=== PATIENT | male | born 1970 | race Caucasian/White ===

== ENCOUNTER 2021-05-27 15:06 | Inpatient (IN) | payer MEDICAID ==
[~2021-05-27] VITALS: Ht 182.9 cm; Wt 126.7 kg
[2021-05-27] MEDS ORDERED: ONDANSETRON HCL 4MG/2ML INJ IV STA (15:18)
[2021-05-27] MEDS ORDERED: SODIUM CHLORIDE 0.9% 1,000 ML IV ONE (15:30)
[2021-05-27] MEDS ORDERED: MORPHINE SULFATE 4 MG/ML CPJ (NOT FOR IM USE) IV ONE (16:15)
[2021-05-27 16:33] LABS: BASOPHILS % 1.2 % (0.0-2.0); EOSINOPHILS % 0.8 % (0.0-5.0); HEMATOCRIT. 35.5 % (42.0-52.0); HEMOGLOBIN. 11.8 g/dL (14.0-18.0); LYMPHOCYTES % 16.3 % (20.0-50.0); MEAN CORPUSCULAR HEMOGLOBIN 27.5 pg (28.0-32.0); MEAN CORPUSCULAR VOLUME 82.7 fL (80.0-94.0); MEAN PLATELET VOLUME 10.1 fl (7.4-10.4); MONOCYTES % 7.7 % (2.0-8.0); PLATELET 99 x1000/uL (130-400); RED BLOOD CELL COUNT 4.29 mill/uL (4.7-6.1); RED CELL DISTRIBUTION WIDTH 21.4 % (11.6-14.6)
[2021-05-27 16:44] LABS: INR 1.2
[2021-05-27] MEDS ORDERED: PANTOPRAZOLE SODIUM 40 MG/VIAL IV ONE (16:45)
[2021-05-27 16:59] LABS: CHLORIDE 103 mEq/L (98-107)
[2021-05-27 17:06] LABS: BETA HYDROXYBUTYRATE 0.7 mMol/L (0.0-0.3)
[2021-05-27 17:10] LABS: ETHANOL BLOOD 297 mg/dL
[2021-05-27] MEDS ORDERED: POTASSIUM CHLORIDE 20MEQ TABLET SR PO ONE (18:45)
[2021-05-27 19:12] LABS: CLARITY URINE CLEAR (CLEAR); COLOR URINE YELLOW (YELLOW); KETONES URINE NEGATIVE (NEGATIVE); LEUKOCYTE ESTERASE URINE NEGATIVE (NEGATIVE); NITRITE URINE NEGATIVE (NEGATIVE); OCCULT BLOOD URINE NEGATIVE (NEGATIVE); PH URINE 5.5 (4.5-8.0); PROTEIN URINE 1+ (NEGATIVE); SPECIFIC GRAVITY URINE 1.006 (1.005-1.030)
[2021-05-27] MEDS ORDERED: FOLIC ACID 1 MG, THIAMINE HCL 100 MG, MVI, ADULT NO.1 10 ML in DEXTROSE 5% WATER 1,000 ML IV ONE ×4 (19:45)
[2021-05-27] MEDS ORDERED: ACETAMINOPHEN 325MG TABLET PO PRN ×2 (23:15)
[2021-05-27] MEDS ORDERED: MAGNESIUM/ALUMINUM HYDROXIDE/SIMETHICONE 30ML UDC PO PRN (23:15)
[2021-05-27] MEDS ORDERED: CLONIDINE 0.1MG TABLET PO PRN (23:15)
[2021-05-27] MEDS ORDERED: GUAIFENESIN 200MG/10ML SUGAR FREE UDC PO PRN (23:15)
[2021-05-27] MEDS ORDERED: POTASSIUM CHLORIDE INJ 40 MEQ in DEXT 5% WATER 250 ML IV ONE (23:15)
[2021-05-27] MEDS ORDERED: ENOXAPARIN 40MG/0.4ML SYR SUBCUT NR (23:31)
[2021-05-27] MEDS: KCL 20MEQ/100ML X 2 FOR TOTAL KCL 40MEQ/200ML IV SCH (23:45)
[2021-05-27] MEDS: SODIUM CHLORIDE 0.9% 1,000 ML IV SCH (23:45)
[2021-05-27 23:52] LABS: *AMPHETAMINES SCREEN URINE NEGATIVE (NEGATIVE)
[2021-05-27 23:53] LABS: *BARBITURATES SCREEN URINE NEGATIVE (NEGATIVE); *BENZODIAZEPINES SCREEN URINE NEGATIVE (NEGATIVE); *COCAINE SCREEN URINE NEGATIVE (NEGATIVE); CANNABINOID URINE SCREEN NEGATIVE (NEGATIVE); METHADONE URINE SCREEN NEGATIVE (NEGATIVE); OPIATES URINE SCREEN PRESUMTIVE POSITIVE (NEGATIVE); PHENCYCLIDINE URINE SCREEN NEGATIVE (NEGATIVE)
[2021-05-28] VITALS (7 sets, daily range): BP systolic 118–149; BP diastolic 74–89
[2021-05-28] MEDS: HYDROCODONE/ACETAMINOPHEN 5/325MG TABLET PO PRN (01:22)
[2021-05-28] MEDS ORDERED: NALOXONE HCL 0.4MG/ML VIAL IV PRN (01:30)
[2021-05-28] MEDS: LORAZEPAM 2MG/ML CPJ IV PRN ×3 (01:40→18:44)
[2021-05-28] MEDS: ONDANSETRON HCL 4MG/2ML INJ IV PRN ×2 (01:41→18:43)
[2021-05-28] MEDS: KCL 20MEQ/100ML X 2 FOR TOTAL KCL 40MEQ/200ML IV SCH ×3 (01:45→05:45)
[2021-05-28] MEDS ORDERED: METO100T16 PO (01:58)
[2021-05-28] MEDS ORDERED: RIVA20TA PO (01:58)
[2021-05-28] MEDS ORDERED: METF-414 PO (01:58)
[2021-05-28] MEDS ORDERED: ATOR40TA70 PO (01:58)
[2021-05-28] MEDS ORDERED: LOSA100T32 PO (01:58)
[2021-05-28] MEDS ORDERED: FAMO20TA8 PO (01:58)
[2021-05-28 07:24] LABS: BASOPHILS % 1.3 % (0.0-2.0); EOSINOPHILS % 1.1 % (0.0-5.0); HEMATOCRIT. 38.8 % (42.0-52.0); HEMOGLOBIN. 12.9 g/dL (14.0-18.0); LYMPHOCYTES % 13.9 % (20.0-50.0); MEAN CORPUSCULAR HEMOGLOBIN 27.8 pg (28.0-32.0); MEAN CORPUSCULAR VOLUME 83.4 fL (80.0-94.0); MEAN PLATELET VOLUME 11.1 fl (7.4-10.4); MONOCYTES % 9.8 % (2.0-8.0); NEUTROPHILS % 73.9 % (40.0-76.0); PLATELET 60 x1000/uL (130-400); RED BLOOD CELL COUNT 4.65 mill/uL (4.7-6.1); RED CELL DISTRIBUTION WIDTH 21.6 % (11.6-14.6)
[2021-05-28 07:42] LABS: PHOSPHORUS 3.5 mg/dL (2.5-4.9)
[2021-05-28] MEDS ORDERED: ENOXAPARIN 30MG/0.3ML SYR SUBCUT SCH (09:00)
[2021-05-28] MEDS: SODIUM CHLORIDE 0.9% 1,000 ML IV SCH ×3 (13:22→21:35)
[2021-05-29] VITALS (7 sets, daily range): BP systolic 128–153; BP diastolic 82–91
[2021-05-29 07:59] LABS: BASOPHILS % 1.3 % (0.0-2.0); EOSINOPHILS % 1.7 % (0.0-5.0); HEMATOCRIT. 34.8 % (42.0-52.0); HEMOGLOBIN. 11.7 g/dL (14.0-18.0); MEAN CORPUSCULAR VOLUME 83.1 fL (80.0-94.0); MEAN PLATELET VOLUME 11.1 fl (7.4-10.4); MONOCYTES % 10.4 % (2.0-8.0); NEUTROPHILS % 71.6 % (40.0-76.0); PLATELET 53 x1000/uL (130-400); RED BLOOD CELL COUNT 4.19 mill/uL (4.7-6.1); RED CELL DISTRIBUTION WIDTH 21.1 % (11.6-14.6)
[2021-05-29 08:33] LABS: PHOSPHORUS 3.2 mg/dL (2.5-4.9)
[2021-05-29] MEDS ORDERED: LOSARTAN POTASSIUM 100 MG TABLET PO SCH ×2 (09:00→21:00)
[2021-05-29] MEDS ORDERED: ATORVASTATIN CALCIUM 40MG TABLET PO SCH ×2 (09:00→21:00)
[2021-05-29] MEDS: FAMOTIDINE 20MG TABLET PO SCH (09:27)
[2021-05-29] MEDS: METOPROLOL TARTRATE 100MG TABLET PO SCH ×2 (09:28→17:45)
[2021-05-29] MEDS: HYDROCODONE/ACETAMINOPHEN 5/325MG TABLET PO PRN (09:28)
[2021-05-29] MEDS: SODIUM CHLORIDE 0.9% 1,000 ML IV SCH ×2 (12:27→22:02)
[2021-05-29] MEDS: LORAZEPAM 2MG/ML CPJ IV PRN ×2 (12:27→22:01)
[2021-05-29] MEDS ORDERED: RIVAROXABAN 20 MG TABLET PO SCH (17:00)
[2021-05-30] VITALS: BP 147/85
[2021-05-30 04:00] VITALS: BP 131/59
[2021-05-30 06:16] LABS: BASOPHILS % 1.2 % (0.0-2.0); EOSINOPHILS % 3.6 % (0.0-5.0); HEMATOCRIT. 34.2 % (42.0-52.0); HEMOGLOBIN. 11.5 g/dL (14.0-18.0); LYMPHOCYTES % 18.9 % (20.0-50.0); MEAN CORPUSCULAR HEMOGLOBIN 28.1 pg (28.0-32.0); MEAN CORPUSCULAR VOLUME 83.4 fL (80.0-94.0); MEAN PLATELET VOLUME 11.5 fl (7.4-10.4); MONOCYTES % 7.5 % (2.0-8.0); NEUTROPHILS % 68.8 % (40.0-76.0); RED CELL DISTRIBUTION WIDTH 21.1 % (11.6-14.6)
[2021-05-30 06:23] LABS: CHLORIDE 108 mEq/L (98-107)
[2021-05-30 06:28] LABS: PHOSPHORUS 2.9 mg/dL (2.5-4.9)
[2021-05-30 06:55] LABS: PLATELET 48 x1000/uL (130-400)
[2021-05-30 08:00] VITALS: BP 161/84
[2021-05-30 08:11] LABS: PLATELET ESTIMATE MARKEDLY DECREASED
[2021-05-30] MEDS: LORAZEPAM 2MG/ML CPJ IV PRN (08:55)
[2021-05-30] MEDS: METOPROLOL TARTRATE 100MG TABLET PO SCH (08:55)
[2021-05-30] MEDS: FAMOTIDINE 20MG TABLET PO SCH (08:55)
[2021-05-30] MEDS ORDERED: THIAMINE HCL 100MG TABLET PO SCH (09:00)
[2021-05-30] MEDS: MAGNESIUM OXIDE 400MG TABLET PO SCH ×2 (09:05→12:43)
[2021-05-30 12:00] VITALS: BP 149/91
[2021-05-30] MEDS ORDERED: THIA100T72 PO (13:55)
[2021-05-30 14:37] VITALS: BP 140/89
== END 2021-05-30 17:15 | disposition home or self-care (01) | DRG 203 ==
LOC: ER 15:06 → MICUSO 22:42 → SUPCPDRO 23:00 → 6WST 05-28 00:33
PROVIDERS: ADMIT Internal Medicine; ATTEND Internal Medicine
DX: R07.89 Other chest pain (principal); N17.9 Acute kidney failure, unspecified; F10.129 Alcohol abuse with intoxication, unspecified; E11.9 Type 2 diabetes mellitus without complications; I48.91 Unspecified atrial fibrillation; F10.139 Alcohol abuse with withdrawal, unspecified; Z20.822 Contact with and (suspected) exposure to COVID-19; E78.00 Pure hypercholesterolemia, unspecified; I10 Essential (primary) hypertension; F41.9 Anxiety disorder, unspecified; E78.5 Hyperlipidemia, unspecified; Z79.01 Long term (current) use of anticoagulants; Z79.84 Long term (current) use of oral hypoglycemic drugs; Z79.899 Other long term (current) drug therapy; Z88.8 Allergy status to other drugs, medicaments and biological substances; E87.6 Hypokalemia; Z86.79 Personal history of other diseases of the circulatory system; R11.0 Nausea
CPT/HCPCS: 36415; 71045; 80048; 80053; 80305; 80320; 81003; 82010; 82550; 82962; 83605; 83735; 83880; 83930; 84100; 84484; 85025; 87426; 93005; 99285; C9113; J1650; J2060; J2270; J2405; J3411; J3480; J3490; J7030; J7070; G0480

== ENCOUNTER 2021-07-04 15:28 | Inpatient (IN) | payer MEDICAID ==
[~2021-07-04] VITALS: Ht 172.7 cm; Wt 125.6 kg
[~2021-07-04 15:28] MED LIST: ATOR40TA70 PO; FAMO20TA8 PO; LOSA100T32 PO; METF-414 PO; METO100T16 PO; RIVA20TA PO; THIA100T72 PO
[2021-07-04] MEDS ORDERED: ASPIRIN 325MG EC TABLET PO ONE (16:00)
[2021-07-04 16:08] LABS: BASOPHILS % 2.8 % (0.0-2.0); EOSINOPHILS % 1.5 % (0.0-5.0); HEMATOCRIT. 38.9 % (42.0-52.0); HEMOGLOBIN. 13.3 g/dL (14.0-18.0); LYMPHOCYTES % 28.4 % (20.0-50.0); MEAN CORPUSCULAR HEMOGLOBIN 28.4 pg (28.0-32.0); MEAN CORPUSCULAR VOLUME 83.2 fL (80.0-94.0); MEAN PLATELET VOLUME 10.2 fl (7.4-10.4); MONOCYTES % 8.3 % (2.0-8.0); PLATELET 114 x1000/uL (130-400); RED BLOOD CELL COUNT 4.68 mill/uL (4.7-6.1); RED CELL DISTRIBUTION WIDTH 20.3 % (11.6-14.6)
[2021-07-04 16:21] LABS: CHLORIDE 99 mEq/L (98-107)
[2021-07-04 16:34] LABS: ETHANOL BLOOD 312 mg/dL
[2021-07-04] MEDS ORDERED: METOPROLOL TARTRATE 5MG/5ML VIAL IV NR (16:45)
[2021-07-04] MEDS ORDERED: SODIUM CHLORIDE 0.9% 1,000 ML IV NR (16:45)
[2021-07-04] MEDS ORDERED: MORPHINE SULFATE 2 MG/ML CPJ (NOT FOR IM USE) IV NR (17:15)
[2021-07-04] MEDS ORDERED: CLONIDINE 0.1MG TABLET PO PRN (20:45)
[2021-07-04] MEDS ORDERED: IPRATROPIUM/ALBUTEROL 0.5-3(2.5)MG/3ML NEB NEB PRN (20:45)
[2021-07-04] MEDS ORDERED: ONDANSETRON HCL 4MG/2ML INJ IV PRN (20:45)
[2021-07-04] MEDS ORDERED: GUAIFENESIN 200MG/10ML SUGAR FREE UDC PO PRN (20:45)
[2021-07-04] MEDS ORDERED: NITROGLYCERIN 0.4MG TABLET SL SL PRN (20:45)
[2021-07-04] MEDS ORDERED: ACETAMINOPHEN 325MG TABLET PO PRN ×2 (20:45)
[2021-07-04] MEDS ORDERED: MAGNESIUM/ALUMINUM HYDROXIDE/SIMETHICONE 30ML UDC PO PRN (20:45)
[2021-07-04] MEDS ORDERED: DOCUSATE SODIUM 100MG CAPSULE PO PRN (20:45)
[2021-07-04] MEDS ORDERED: MVI, ADULT NO.1 10 ML, FOLIC ACID 1 MG, THIAMINE HCL 100 MG in SODIUM CHLORIDE 0.9% 1,0... IV SCH ×4 (21:00)
[2021-07-04 21:16] LABS: T4 FREE 1.21 ng/dL (0.76-1.46)
[2021-07-04 21:27] LABS: FOLIC ACID (FOLATE) SERUM 6.4 ng/mL (>5.38)
[2021-07-04] MEDS: FAMOTIDINE 20MG TABLET PO SCH (21:38)
[2021-07-04] MEDS: KETOROLAC 15MG/ML VIAL IV PRN (21:39)
[2021-07-04] MEDS ORDERED: METOPROLOL TARTRATE 5MG/5ML VIAL IV ONE (21:45)
[2021-07-04 23:37] LABS: CREATINE KINASE 188 IU/L (39-308)
[2021-07-04 23:38] LABS: CREATINE KINASE MB FRACTION 2.2 ng/mL (0.5-3.6)
[2021-07-05] MEDS: DILTIAZEM HCL 60MG TABLET PO SCH ×4 (00:13→17:07)
[2021-07-05] MEDS: ZOLPIDEM TARTRATE 5MG TABLET PO PRN ×2 (00:45→21:30)
[2021-07-05 01:33] VITALS: BP 139/69
[2021-07-05 04:30] VITALS: BP 148/80
[2021-07-05] MEDS: APIXABAN 5 MG TABLET PO SCH ×2 (06:03→17:07)
[2021-07-05 06:11] LABS: BASOPHILS % 3.1 % (0.0-2.0); EOSINOPHILS % 3.2 % (0.0-5.0); HEMATOCRIT. 37.4 % (42.0-52.0); HEMOGLOBIN. 12.7 g/dL (14.0-18.0); LYMPHOCYTES % 27.2 % (20.0-50.0); MEAN CORPUSCULAR HEMOGLOBIN 28.6 pg (28.0-32.0); MEAN CORPUSCULAR VOLUME 83.9 fL (80.0-94.0); MONOCYTES % 9.8 % (2.0-8.0); NEUTROPHILS % 56.7 % (40.0-76.0); PLATELET 89 x1000/uL (130-400); RED BLOOD CELL COUNT 4.46 mill/uL (4.7-6.1); RED CELL DISTRIBUTION WIDTH 20.4 % (11.6-14.6)
[2021-07-05 06:15] LABS: CHLORIDE 105 mEq/L (98-107)
[2021-07-05 06:21] LABS: PHOSPHORUS 2.2 mg/dL (2.5-4.9)
[2021-07-05 06:23] LABS: CREATINE KINASE 168 IU/L (39-308)
[2021-07-05 08:00] VITALS: BP 173/82
[2021-07-05] MEDS: KETOROLAC 15MG/ML VIAL IV PRN ×2 (08:57→21:26)
[2021-07-05] MEDS: FAMOTIDINE 20MG TABLET PO SCH ×2 (08:58→21:30)
[2021-07-05] MEDS: ASPIRIN 325MG EC TABLET PO SCH (08:58)
[2021-07-05 11:55] VITALS: BP 145/73
[2021-07-05 16:00] VITALS: BP 141/72
[2021-07-05 20:00] VITALS: BP 120/78
[2021-07-06 00:15] VITALS: BP 126/85
[2021-07-06] MEDS: DILTIAZEM HCL 60MG TABLET PO SCH ×4 (00:30→18:05)
[2021-07-06 04:00] VITALS: BP 136/74
[2021-07-06] MEDS: APIXABAN 5 MG TABLET PO SCH ×2 (05:16→18:04)
[2021-07-06 08:00] VITALS: BP 145/71
[2021-07-06] MEDS: FAMOTIDINE 20MG TABLET PO SCH ×2 (09:12→21:29)
[2021-07-06] MEDS: ASPIRIN 325MG EC TABLET PO SCH (09:12)
[2021-07-06 12:00] VITALS: BP 131/82
[2021-07-06 16:30] VITALS: BP 128/77
[2021-07-06 20:00] VITALS: BP 125/75
[2021-07-06] MEDS: ZOLPIDEM TARTRATE 5MG TABLET PO PRN (21:34)
[2021-07-06] MEDS: KETOROLAC 15MG/ML VIAL IV PRN (21:34)
[2021-07-07] VITALS: BP 143/79
[2021-07-07] MEDS: DILTIAZEM HCL 60MG TABLET PO SCH ×2 (00:30→05:42)
[2021-07-07 04:00] VITALS: BP 135/76
[2021-07-07] MEDS: APIXABAN 5 MG TABLET PO SCH (05:42)
[2021-07-07 07:38] LABS: BASOPHILS % 2.4 % (0.0-2.0); EOSINOPHILS % 5.5 % (0.0-5.0); HEMATOCRIT. 36.2 % (42.0-52.0); HEMOGLOBIN. 12.3 g/dL (14.0-18.0); LYMPHOCYTES % 18.7 % (20.0-50.0); MEAN CORPUSCULAR HEMOGLOBIN 28.9 pg (28.0-32.0); MEAN CORPUSCULAR VOLUME 84.9 fL (80.0-94.0); MEAN PLATELET VOLUME 10.9 fl (7.4-10.4); MONOCYTES % 7.6 % (2.0-8.0); NEUTROPHILS % 65.8 % (40.0-76.0); PLATELET 82 x1000/uL (130-400); RED BLOOD CELL COUNT 4.26 mill/uL (4.7-6.1); RED CELL DISTRIBUTION WIDTH 19.5 % (11.6-14.6)
[2021-07-07 08:00] VITALS: BP 125/74
[2021-07-07] MEDS: ASPIRIN 325MG EC TABLET PO SCH (08:24)
[2021-07-07] MEDS: FAMOTIDINE 20MG TABLET PO SCH (08:24)
== END 2021-07-07 12:50 | disposition home or self-care (01) | DRG 201 ==
LOC: ER 15:28 → MICUSO 20:36 → SUPCPDRO 20:54 → EDBEDREQ 20:59 → EDBEDREQTM 20:59 → 8WST 07-05 02:11
PROVIDERS: ADMIT Internal Medicine; ATTEND Internal Medicine
DX: I48.91 Unspecified atrial fibrillation (principal); D63.8 Anemia in other chronic diseases classified elsewhere; M94.0 Chondrocostal junction syndrome [Tietze]; E83.51 Hypocalcemia; F10.129 Alcohol abuse with intoxication, unspecified; E87.1 Hypo-osmolality and hyponatremia; I10 Essential (primary) hypertension; E78.00 Pure hypercholesterolemia, unspecified; E11.9 Type 2 diabetes mellitus without complications; Y90.8 Blood alcohol level of 240 mg/100 ml or more; E78.5 Hyperlipidemia, unspecified; R74.01 Elevation of levels of liver transaminase levels; Z88.8 Allergy status to other drugs, medicaments and biological substances; Z71.41 Alcohol abuse counseling and surveillance of alcoholic
CPT/HCPCS: 36415; 71045; 80053; 80061; 80320; 82550; 82553; 82607; 82746; 83036; 83540; 83550; 83735; 83880; 84100; 84439; 84443; 84484; 85025; 93005; 93306; 93970; 99291; J1885; J2270; J2405; J3411; J3490; J7030; G0480

== ENCOUNTER 2021-08-31 11:52 | Emergency (ER) | payer MEDICAID ==
[~2021-08-31] VITALS: Ht 177.8 cm; Wt 90.0 kg
[2021-08-31] MEDS ORDERED: ASPIRIN 325MG EC TABLET PO ONE (12:15)
[2021-08-31] MEDS ORDERED: METOPROLOL TARTRATE 5MG/5ML VIAL IV ONE (12:15)
[2021-08-31 12:21] LABS: BASOPHILS % 3.9 % (0.0-2.0); EOSINOPHILS % 0.7 % (0.0-5.0); HEMATOCRIT. 42.6 % (42.0-52.0); HEMOGLOBIN. 14.1 g/dL (14.0-18.0); LYMPHOCYTES % 21.1 % (20.0-50.0); MEAN CORPUSCULAR VOLUME 84.5 fL (80.0-94.0); MEAN PLATELET VOLUME 9.8 fl (7.4-10.4); MONOCYTES % 4.6 % (2.0-8.0); NEUTROPHILS % 69.7 % (40.0-76.0); PLATELET 210 x1000/uL (130-400); RED BLOOD CELL COUNT 5.04 mill/uL (4.7-6.1); RED CELL DISTRIBUTION WIDTH 18.8 % (11.6-14.6)
[2021-08-31 12:34] LABS: CHLORIDE 102 mEq/L (98-107)
[2021-08-31] MEDS ORDERED: SODIUM CHLORIDE 0.9% 1,000 ML IV NR (12:45)
[2021-08-31] MEDS ORDERED: VISCOUS LIDOCAINE 2% 15 ML UDC MM NR (12:45)
[2021-08-31] MEDS ORDERED: MAGNESIUM/ALUMINUM HYDROXIDE/SIMETHICONE 30ML UDC PO NR (12:45)
[2021-08-31 12:47] LABS: ETHANOL BLOOD 326 mg/dL
[2021-08-31] MEDS ORDERED: SODIUM CHLORIDE 0.9% 1,000 ML IV ONE (14:30)
[2021-08-31] MEDS ORDERED: METOPROLOL SUCCINATE 50MG ER TABLET PO NR (14:30)
[2021-08-31] MEDS ORDERED: MORPHINE SULFATE 4 MG/ML CPJ (NOT FOR IM USE) IV ONE (15:15)
[2021-08-31 15:42] LABS: *AMPHETAMINES SCREEN URINE PRESUMTIVE POSITIVE (NEGATIVE); *BARBITURATES SCREEN URINE NEGATIVE (NEGATIVE); *BENZODIAZEPINES SCREEN URINE NEGATIVE (NEGATIVE); *COCAINE SCREEN URINE NEGATIVE (NEGATIVE); CANNABINOID URINE SCREEN NEGATIVE (NEGATIVE); METHADONE URINE SCREEN NEGATIVE (NEGATIVE); OPIATES URINE SCREEN NEGATIVE (NEGATIVE); PHENCYCLIDINE URINE SCREEN NEGATIVE (NEGATIVE)
[2021-08-31] MEDS ORDERED: RIVAROXABAN 10 MG TABLET PO SCH (17:00)
[2021-08-31] MEDS ORDERED: RIVA20TA MT (18:38)
[2021-08-31] MEDS ORDERED: FAMO40TA70 MT (18:38)
[2021-08-31] MEDS ORDERED: METO100T16 MT (18:38)
[2021-08-31 18:50] VITALS: BP 116/79
== END 2021-08-31 19:18 | disposition home or self-care (01) ==
LOC: ER 11:52
DX: R07.9 Chest pain, unspecified (principal); I48.20 Chronic atrial fibrillation, unspecified; F19.10 Other psychoactive substance abuse, uncomplicated; I11.9 Hypertensive heart disease without heart failure; E11.9 Type 2 diabetes mellitus without complications; E78.00 Pure hypercholesterolemia, unspecified; F10.129 Alcohol abuse with intoxication, unspecified; Y90.8 Blood alcohol level of 240 mg/100 ml or more; Z88.8 Allergy status to other drugs, medicaments and biological substances; Z91.14 Patient's other noncompliance with medication regimen
CPT/HCPCS: 36415; 71045; 80053; 80305; 80320; 83880; 84484; 85025; 93005; 96361; 96374; 96375; 99285; J2270; J3490; G0480

== ENCOUNTER 2021-09-17 10:48 | Inpatient (IN) | payer MEDICAID, OTHER ==
[~2021-09-17] VITALS: Ht 182.9 cm; Wt 114.8 kg
[~2021-09-17 10:48] MED LIST changes: +FAMO40TA70 MT; +METO100T16 MT; +RIVA20TA MT
[2021-09-17] MEDS ORDERED: MORPHINE SULFATE 4 MG/ML CPJ (NOT FOR IM USE) IV STA (11:01)
[2021-09-17] MEDS ORDERED: ONDANSETRON HCL 4MG/2ML INJ IV STA (11:01)
[2021-09-17] MEDS ORDERED: DILTIAZEM HCL 5MG/ML 10ML VIAL IV NR ×2 (11:15→22:15)
[2021-09-17] MEDS ORDERED: DILTIAZEM HCL 5MG/ML 5ML VIAL IV ONE ×2 (11:15→12:00)
[2021-09-17 12:53] LABS: CHLORIDE 108 mEq/L (98-107)
[2021-09-17 13:08] LABS: HEMATOCRIT. 37.4 % (42.0-52.0); HEMOGLOBIN. 12.4 g/dL (14.0-18.0); MEAN CORPUSCULAR VOLUME 84.8 fL (80.0-94.0); PLATELET 168 x1000/uL (130-400); RED BLOOD CELL COUNT 4.41 mill/uL (4.7-6.1); RED CELL DISTRIBUTION WIDTH 18.9 % (11.6-14.6)
[2021-09-17] MEDS ORDERED: POTASSIUM CHLORIDE 20MEQ TABLET SR PO ONE (13:15)
[2021-09-17 13:22] LABS: ETHANOL BLOOD 186 mg/dL
[2021-09-17 13:37] LABS: PLATELET ESTIMATE NORMAL
[2021-09-17] MEDS ORDERED: RIVAROXABAN 20 MG TABLET PO SCH (17:00)
[2021-09-17] MEDS ORDERED: DEXTROSE 50% WATER 50ML SYRINGE IV PRN (17:00)
[2021-09-17] MEDS ORDERED: FAMOTIDINE(NEO) 1MG/ML SUSP PO SCH (17:00)
[2021-09-17] MEDS ORDERED: ENOXAPARIN 40MG/0.4ML SYR SUBCUT SCH (17:00)
[2021-09-17 17:20] VITALS: BP 143/101
[2021-09-17] MEDS: INSULIN LISPRO 100 UNITS/ML SUBCUT SCH ×2 (17:33→20:34)
[2021-09-17] MEDS: BLOOD SUGAR DIAGNOSTIC STRIP TEST SCH ×2 (17:33→20:34)
[2021-09-17 18:18] VITALS: BP 143/101
[2021-09-17] MEDS ORDERED: HYDROCODONE/ACETAMINOPHEN 5/325MG TABLET PO PRN (18:45)
[2021-09-17] MEDS ORDERED: NALOXONE HCL 0.4MG/ML VIAL IV PRN (19:00)
[2021-09-17 20:00] VITALS: BP 111/69
[2021-09-17] MEDS: LORAZEPAM 0.5MG TABLET PO PRN (20:33)
[2021-09-17] MEDS: METOPROLOL TARTRATE 100MG TABLET PO SCH (20:33)
[2021-09-17] MEDS ORDERED: ATORVASTATIN CALCIUM 40MG TABLET PO SCH (21:00)
[2021-09-17] MEDS ORDERED: DILTIAZEM HCL 5MG/ML 5ML VIAL IV NR (22:00)
[2021-09-17] MEDS ORDERED: ONDANSETRON HCL 4MG/2ML INJ IV PRN (22:00)
[2021-09-17] MEDS ORDERED: *PATIENT'S OWN MEDICATION STORAGE XX SCH (22:15)
[2021-09-18] VITALS: BP 130/73
[2021-09-18 00:44] LABS: CREATINE KINASE MB FRACTION 1.4 ng/mL (0.5-3.6)
[2021-09-18 04:00] VITALS: BP 155/74
[2021-09-18] MEDS: LORAZEPAM 0.5MG TABLET PO PRN ×3 (05:04→18:02)
[2021-09-18] MEDS: BLOOD SUGAR DIAGNOSTIC STRIP TEST SCH ×4 (06:13→21:22)
[2021-09-18] MEDS: INSULIN LISPRO 100 UNITS/ML SUBCUT SCH ×4 (06:13→21:00)
[2021-09-18 07:50] LABS: HEMATOCRIT. 37.5 % (42.0-52.0); HEMOGLOBIN. 12.3 g/dL (14.0-18.0); MEAN CORPUSCULAR VOLUME 85.6 fL (80.0-94.0); MEAN PLATELET VOLUME 10.9 fl (7.4-10.4); PLATELET 144 x1000/uL (130-400); RED BLOOD CELL COUNT 4.38 mill/uL (4.7-6.1); RED CELL DISTRIBUTION WIDTH 18.5 % (11.6-14.6)
[2021-09-18 07:51] LABS: CLARITY URINE CLEAR (CLEAR); COLOR URINE DARK YELLOW (YELLOW); KETONES URINE 2+ (NEGATIVE); LEUKOCYTE ESTERASE URINE NEGATIVE (NEGATIVE); NITRITE URINE NEGATIVE (NEGATIVE); OCCULT BLOOD URINE NEGATIVE (NEGATIVE); PROTEIN URINE NEGATIVE (NEGATIVE); SPECIFIC GRAVITY URINE 1.023 (1.005-1.030)
[2021-09-18 08:08] VITALS: BP 151/71
[2021-09-18 08:17] LABS: *AMPHETAMINES SCREEN URINE PRESUMTIVE POSITIVE (NEGATIVE); *BARBITURATES SCREEN URINE NEGATIVE (NEGATIVE); *BENZODIAZEPINES SCREEN URINE NEGATIVE (NEGATIVE); *COCAINE SCREEN URINE NEGATIVE (NEGATIVE); CANNABINOID URINE SCREEN NEGATIVE (NEGATIVE); METHADONE URINE SCREEN NEGATIVE (NEGATIVE); OPIATES URINE SCREEN PRESUMTIVE POSITIVE (NEGATIVE); PHENCYCLIDINE URINE SCREEN NEGATIVE (NEGATIVE)
[2021-09-18] MEDS: CHLORDIAZEPOXIDE 25MG CAPSULE PO SCH ×3 (08:36→21:21)
[2021-09-18] MEDS: FAMOTIDINE 20MG TABLET PO SCH (08:36)
[2021-09-18] MEDS: METOPROLOL TARTRATE 100MG TABLET PO SCH ×2 (08:37→21:22)
[2021-09-18 08:38] LABS: CREATINE KINASE MB FRACTION 1.3 ng/mL (0.5-3.6)
[2021-09-18 12:00] VITALS: BP 158/99
[2021-09-18 13:23] LABS: PLATELET ESTIMATE NORMAL
[2021-09-18] MEDS ORDERED: HYDRALAZINE 20MG/ML VIAL IV PRN (15:45)
[2021-09-18] MEDS: AMLODIPINE 10MG TABLET PO SCH (16:52)
[2021-09-18] MEDS: RIVAROXABAN 20 MG TABLET PO SCH (16:52)
[2021-09-18 20:00] VITALS: BP 133/88
[2021-09-18] MEDS ORDERED: NITROGLYCERIN 0.4MG TABLET SL SL PRN (21:00)
[2021-09-18] MEDS ORDERED: TRAMADOL 50MG TABLET PO PRN (22:15)
[2021-09-19] VITALS: BP 110/72
[2021-09-19 04:00] VITALS: BP 125/81
[2021-09-19] MEDS: CHLORDIAZEPOXIDE 25MG CAPSULE PO SCH ×2 (05:22→14:00)
[2021-09-19] MEDS: BLOOD SUGAR DIAGNOSTIC STRIP TEST SCH ×3 (07:24→17:03)
[2021-09-19] MEDS: INSULIN LISPRO 100 UNITS/ML SUBCUT SCH ×3 (07:24→17:03)
[2021-09-19 07:28] LABS: HEMATOCRIT. 38.6 % (42.0-52.0); HEMOGLOBIN. 12.6 g/dL (14.0-18.0); MEAN CORPUSCULAR HEMOGLOBIN 27.8 pg (28.0-32.0); MEAN CORPUSCULAR VOLUME 85.4 fL (80.0-94.0); MEAN PLATELET VOLUME 10.7 fl (7.4-10.4); PLATELET 136 x1000/uL (130-400); RED BLOOD CELL COUNT 4.52 mill/uL (4.7-6.1); RED CELL DISTRIBUTION WIDTH 18.5 % (11.6-14.6)
[2021-09-19 08:00] VITALS: BP 128/74
[2021-09-19] MEDS ORDERED: METO100T16 PO (08:07)
[2021-09-19] MEDS ORDERED: RIVA20TA MT (08:07)
[2021-09-19] MEDS ORDERED: THIA100T72 PO (08:07)
[2021-09-19] MEDS ORDERED: AMLO10TA80 PO (08:07)
[2021-09-19 08:43] LABS: CHLORIDE 104 mEq/L (98-107)
[2021-09-19] MEDS: AMLODIPINE 10MG TABLET PO SCH (09:04)
[2021-09-19] MEDS: FAMOTIDINE 20MG TABLET PO SCH (09:04)
[2021-09-19] MEDS: METOPROLOL TARTRATE 100MG TABLET PO SCH (09:05)
[2021-09-19] MEDS: LORAZEPAM 0.5MG TABLET PO PRN (09:08)
[2021-09-19 12:30] VITALS: BP 129/78
[2021-09-19 14:03] VITALS: BP 129/78
[2021-09-19] MEDS: RIVAROXABAN 20 MG TABLET PO SCH (17:00)
[2021-09-19 17:45] LABS: PLATELET ESTIMATE NORMAL
== END 2021-09-19 17:56 | disposition home or self-care (01) | DRG 201 ==
LOC: ER 10:48 → EDBEDREQ 11:21 → 8WST 13:44 → EDBEDREQ 14:01 → EDBEDREQSVC 14:01 → EDBEDREQTM 14:01 → ENRESERV 15:03
PROVIDERS: ADMIT Family Medicine; ATTEND Family Medicine
DX: I48.91 Unspecified atrial fibrillation (principal); E11.9 Type 2 diabetes mellitus without complications; R07.9 Chest pain, unspecified; E78.5 Hyperlipidemia, unspecified; E87.6 Hypokalemia; F10.129 Alcohol abuse with intoxication, unspecified; I10 Essential (primary) hypertension; E78.00 Pure hypercholesterolemia, unspecified; R74.01 Elevation of levels of liver transaminase levels; I16.0 Hypertensive urgency; Y90.6 Blood alcohol level of 120-199 mg/100 ml; Z79.01 Long term (current) use of anticoagulants; Z91.14 Patient's other noncompliance with medication regimen; Z82.49 Family history of ischemic heart disease and other diseases of the circulatory system
CPT/HCPCS: 36415; 71045; 80048; 80053; 80061; 80305; 80320; 81003; 82550; 82553; 82962; 83036; 83880; 84481; 84484; 85025; 93005; 99291; J2270; J2405; J3490; G0480